=== PATIENT | female | born 1990 | race Caucasian/White ===

== ENCOUNTER 2023-02-14 14:05 | Outpatient (AMB) | payer BC, SELFPAY ==
--- NOTE | 2023-02-14 14:19 | MHC.OFFVIS ---
Intake Vital Signs 02/14/23 14:20 Height 5 ft 5 in BP 166/90 H Blood Pressure Location Rt brachial Position Sitting Respiration 17 Pulse 101 H Pulse Source Pulse Oximeter Pulse Oximetry (%) 99 Oxygen Delivery Method Room Air Intake Visit Reasons: ENP-Severe EVANGELINA-Confirmed Intake Note: Pt presents to office for new pt evaluation for severe EVANGELINA. Buffer Nickel Required: No Allergies clomiphene [From Clomid] Allergy (Mild, Verified 02/14/23 14:23) Migraine HPI HPI Comments History of Present Illness Details 32 y/o female patient with HTN, HLD, palpitations, and migraine presents to manage sleep apnea. Pt reports that she had a home sleep study done a week ago. The home sleep study result was significant for severe degree of sleep apnea. The overall AHI was 34/hr and oxygen gurinder was 89%. Pt reports difficulty falling asleep and staying sleep. It takes half hour to fall asleep and wakes up a lot with dream. She wakes up with tension headache, too. She sleeping on her side due to snoring, and uses nasal strip. She does not take a nap, but can be really tired and exhausted in the afternoon. Pt's sleep schedule is 9:30-10pm to 6am. She does 30 min daily exercise. No caffeine intake but watching TV and playing with phone before bedtime. [facility] Medical History (Updated 02/22/23 @ 10:54 by Zeeshan Woodall CNP) Ectopic Surgical History (Updated 02/14/23 @ 14:25 by Emani Irizarry CMA) History of appendectomy Family History (Updated 02/14/23 @ 14:26 by Emani Irizarry CMA) Father Sleep apnea HTN (hypertension) Mother No problems noted. Social History (Updated 02/14/23 @ 14:27 by Emani Irizarry CMA) Household Members: Spouse and Children Housing: House Alcohol intake: current Comment: seldom Patient Tobacco Use Status: Never used Tobacco Review of Systems Const All systems reviewed & are unremarkable except as noted in HPI and below Physical Exam Vital Signs: Last Vital Signs Pulse 101 H 02/14/23 14:20 Resp 17 02/14/23 14:20 BP 166/90 H 02/14/23 14:20 Pulse Ox 99 02/14/23 14:20 Oxygen Delivery Method Room Air 02/14/23 14:20 Const General: cooperative and tired appearing Orientation/consciousness: patient oriented x3 Neck Neck: Yes full ROM and Yes supple Resp Effort & Inspection: normal respiratory effort and able to speak in complete sentences Neuro General: patient oriented x3, gait normal and moves all extremities Cranial nerves: Yes CN's II-XII intact bilaterally Gait exam (Neuro): Normal gait present Motor exam (neuro): 5/5 motor strength present throughout Psych Appearance: grossly normal Mental Status: mental status grossly normal Speech and movement: Normal speech and movement present Affect: normal affect Attitude: cooperative Assessment & Plan Assessment & Plan (1) EVANGELINA (obstructive sleep apnea): Comment: Severe degree of sleep apnea. The AHI was 34/hr and oxygen gurinder was 89% Code(s): G47.33 - Obstructive sleep apnea (adult) (pediatric) Plan Advised patient to start APAP [id number] to treat sleep apnea. Stressed compliance, use CPAP nightly and more than 4 hrs. Sleep hygiene education provided, limit electronic use before bedtime. Coding Level of Care Code New Pt Level 3 (22806) Diagnoses EVANGELINA (obstructive sleep apnea) G47.33
[2023-02-14 14:20] VITALS: BP 166/90; PULSE 101; RESP 17; O2SAT 99
== END 2023-02-14 14:50 | disposition home or self-care (01) ==
PROVIDERS: PCP Family Medicine; Visit Provider Nurse Practitioner Family
DX: G47.33 Obstructive sleep apnea (adult) (pediatric) (principal)
CPT/HCPCS: 99203

== ENCOUNTER → 2023-02-14 14:05 | Outpatient (BNVA) | payer BC, SELFPAY | PROVIDERS: PCP Family Medicine; Visit Provider Nurse Practitioner Family ==

== ENCOUNTER 2023-05-10 07:53 | Outpatient (AMB) | payer BC, SELFPAY ==
--- NOTE | 2023-05-10 07:54 | A.OFFVIS_ITS ---
Intake Intake Visit Reasons: discuss denial sleep study-LV Intake Note: follow up on sleep. Allergies clomiphene [From Clomid] Allergy (Mild, Verified 05/10/23 07:55) Migraine Medication List - Last Reconciled 05/10/23 by ANURAG Krishnan magnesium 250 mg PO DAILY rosuvastatin 5 mg PO DAILY HPI HPI Comments History of Present Illness Details 33-yr-old female presents for f/u televi suzanne visit via [employer]. Pt denies any significant interval medical changes. Pt has been doing better on CPAP. She is feeling better overall. However she can wake up with either unilateral or bilateral nasal congestion. She used to take allergy medications to help with her dizziness, but stopped a few months ago as she did not think the dizziness was related to allergies. Compliance Report,,04/10/2023 - 05/09/2023 Usage days 29/30 days (97%); >= 4 hours 29 days (97%) < 4 hours Average usage (days used) 5 hours 59 minutes AirSense 10 AutoSet Serial number [id number] Mode APAP 5 - 15 cmH2O EPR Fulltime EPR level 2 Residual AHI: 0.6/hr She will feel like she is moving when she is not, especially in big open spaces. She does have menstrual migraine. Migraines are not as bad as they used to be. Bifrontal, can be unilateral frontal, and eye pain. Throbbing. A/w photophobia, phonophobia, osmophobia, motion sickness, sometimes a split second of room spinning dizziness, mild nausea, feels disoriented/dififuclty getting the words out, activity intolerance. Has had a few auras- will lose vision in one spot x's 1/2-1 hr. Can also have pressure headaches. Has been noticing her computer screen is more bothersome and has trouble focusing. Does wear a mouthguard for TMJ disorder. 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 [facility] Medical History (Updated 05/13/23 @ 17:17 by ANURAG Krishnan) Ectopic Surgical History History of appendectomy Family History Father Sleep apnea HTN (hypertension) Mother No problems noted. Social History Household Members: Spouse and Children Housing: House Alcohol intake: current Comment: seldom Patient Tobacco Use Status: Never used Tobacco Physical Exam Const General: cooperative and no acute distress Orientation/consciousness: patient oriented x3 Resp Effort & Inspection: normal respiratory effort and able to speak in complete sentences Neuro General: patient oriented x3 Cognition (Neuro): normal cognition Psych Appearance: grossly normal Mental Status: mental status grossly normal Speech and movement: Normal speech and movement present Affect: normal affect Attitude: cooperative Assessment & Plan Assessment & Plan (1) EVANGELINA (obstructive sleep apnea): Comment: Severe degree of sleep apnea. The AHI was 34/hr and oxygen gurinder was 89% Code(s): G47.33 - Obstructive sleep apnea (adult) (pediatric) (2) Dizziness: Code(s): R42 - Dizziness and giddiness (3) Migraine: Code(s): G43.909 - Migraine, unspecified, not intractable, without status migrainosus Plan Continue Mode APAP 5 - 15 cmH2O nightly greater than 4 hours is patient is experiencing good clinical effect and has significant reduction in residual AHI. Will adjust EPR from level 2 to level 3, in hopes this includes tolerance Trial saline nasal spray f/b Azelastine nasal spray 1-2 sprays in each nostril q.h.s. Continue vision therapy. Will share nonpharmacological migraine and photosensitivity treatments via portal. Vestibular physical therapy when she has completed vision therapy. Follow-up in 4-6 months or sooner as needed. Orders: Orders PT Evaluation and Treatment 1 Month R42 - Dizziness and giddiness Medications: New azelastine administer into each nostril 2 sprays intranasal BID 30 days 30 mL 3RF Telehealth Telehealth Location of provider rendering services: practice address Location of patient: address on file Patient Identification confirmed using: Name, : Yes Telehealth method: video Patient verbally consented to treatment: Yes Patient verbally consented to billing insurance company: Yes Patient informed of any privacy concerns related to visit: Yes Minutes spent on Phone/Video with Pt.: 23 Coding Level of Care Code Tele Est Pt Level 4 (90025) Diagnoses EVANGELINA (obstructive sleep apnea) G47.33 Dizziness R42 Migraine G43.909
== END 2023-05-10 14:28 | disposition home or self-care (01) ==
LOC: HO.HSMC 07:53
PROVIDERS: PCP Family Medicine; Visit Provider Nurse Practitioner Family
DX: G47.33 Obstructive sleep apnea (adult) (pediatric) (principal); R42 Dizziness and giddiness; G43.909 Migraine, unspecified, not intractable, without status migrainosus
CPT/HCPCS: 99214

== ENCOUNTER → 2023-05-10 07:53 | Outpatient (BNVA) | payer BC, SELFPAY | PROVIDERS: PCP Family Medicine; Visit Provider Nurse Practitioner Family ==

== ENCOUNTER 2023-11-21 11:14 | Outpatient (AMB) | payer BC, SELFPAY ==
--- NOTE | 2023-11-21 11:15 | A.OFFVIS_ITS ---
Intake Visit Reasons: 4 mnts f/u for EVANGELINA Intake Note: Patient presents for 4 month follow up EVANGELINA Allergies clomiphene [From Clomid] Allergy (Mild, Verified 11/21/23 11:15) Migraine HPI Comments Details: 33-yr-old female presents for f/u televideo visit via [employer]. Pt denies any significant interval medical changes. Pt states she has been doing fine with her PAP machine. However, last night, she felt last night was the worst night she has had. She woke up and saw high residual AHI and felt caesar pressure was too high. She woke up w/ abd bloating, pain, sweating- took a few hrs, and fluids/TZums to resolve. Now, feels that she cannot sleep w/o the machine. PAP compliance data does not show significantly elevated AHI- was ~ 2/hr. She has not had a migraine or severe dizziness in at least 6 weeks. She is feeling much better. She has completed vision therapy. She is doing vestibular [place] and bi weekly massage. Started psychotherapy to help manage her stress. She is adhering to a migraine diet. Specifically avoiding foods high in histamine. Not noticing as much congestion. She is taking Propranolol 10mg qhs- never increased to 20mg. She notes that her migraine and dizziness is worse in the fall- but she is hopeful that this fall will be better. She is picking up her Nurtec today. [place] [id number] Email: Compliance Report Usage 10/22/2023 - 11/20/2023 Usage days 30/30 days (100%) >= 4 hours 27 days (90%) < 4 hours 3 days (10%) Usage hours 188 hours 41 minutes Average usage (total days) 6 hours 17 minutes Average usage (days used) 6 hours 17 minutes Median usage (days used) 6 hours 37 minutes Total used hours (value since last reset - 11/20/2023) 1,553 hours AirSense 10 AutoSet Serial number [id number] Mode AutoSet Min Pressure 5 cmH2O Max Pressure 15 cmH2O EPR Fulltime EPR level 3 Response Standard Therapy Pressure - cmH2O Median: 6.3 95th percentile: 8.7 Maximum: 10.6 Leaks - L/min Median: 0.0 95th percentile: 1.6 Maximum: 20.5 Events per hour AI: 1.1 HI: 0.0 AHI: 1.1 PFSH Medical History (Updated 05/13/23 @ 17:17 by ANURAG Krishnan) Ectopic Surgical History History of appendectomy Family History Father Sleep apnea HTN (hypertension) Mother No problems noted. Social History Household Members: Spouse and Children Housing: House Alcohol intake: current Comment: seldom Patient Tobacco Use Status: Never used Tobacco Physical Exam Const General: cooperative and no acute distress Orientation/consciousness: patient oriented x3 Resp Effort & Inspection: normal respiratory effort and able to speak in complete sentences Neuro General: patient oriented x3 Cognition (Neuro): normal cognition Psych Appearance: grossly normal Mental Status: mental status grossly normal Speech and movement: Normal speech and movement present Affect: normal affect Attitude: cooperative Telehealth Telehealth Telehealth Platform: Telephone Location of provider rendering services: practice address Location of patient: address on file Patient Identification confirmed using: Name, : Yes Telehealth method: video Patient verbally consented to treatment: Yes Patient verbally consented to billing insurance company: Yes Patient informed of any privacy concerns related to visit: Yes Minutes spent on Phone/Video with Pt.: 12 Assessment & Plan Assessment & Plan (1) Migraine: Code(s): G43.909 - Migraine, unspecified, not intractable, without status migrainosus Category: Medical (2) Dizziness: Code(s): R42 - Dizziness and giddiness Category: Medical (3) EVANGELINA (obstructive sleep apnea): Comment: Severe degree of sleep apnea. The AHI was 34/hr and oxygen gurinder was 89% Code(s): G47.33 - Obstructive sleep apnea (adult) (pediatric) Category: Medical Plan Continue APAP 5 - 15 cmH2O w/ EPR 3 nightly greater than 4 hours is patient is experiencing good clinical effect and has significant reduction in residual AHI. Azelastine nasal spray 1-2 sprays in each nostril q.h.s. prn Pt to let us know if last night's difficulties w/ PAP tx persist. ? Continue Vestibular physical therapy. Continue propranolol 10mg qhs. Rimegepant ODT (Nurtec ODT) 75mg, 1 tab every other day. Max of 1 tabs (75mg) per 24 hours. May adjunct with OTC Tylenol 650mg q 4 hours, Ibuprofen 600mg q 6 hours, or Naproxen 440mg q 12 hrs prn. Do not take w/ Butalbital (Fioricet or Fiorinal). Potential adverse effects, include but are not limited to fatigue, nausea, dry mouth, constipation. Previous trials- Timolol eye gtts- ineffcetive. ? Follow-up in 6 months or sooner as needed. Coding Level of Care Code Tele Est Pt Level 4 (21068) Diagnoses Migraine G43.909 Dizziness R42 EVANGELINA (obstructive sleep apnea) G47.33
== END 2023-11-21 12:25 | disposition home or self-care (01) ==
LOC: HO.HSMS 11:14
PROVIDERS: PCP Family Medicine; Referring Provider Family Medicine; Visit Provider Nurse Practitioner Family
DX: G43.909 Migraine, unspecified, not intractable, without status migrainosus (principal); R42 Dizziness and giddiness; G47.33 Obstructive sleep apnea (adult) (pediatric)
CPT/HCPCS: 99214

== ENCOUNTER → 2023-11-21 11:14 | Outpatient (BNVA) | payer BC, SELFPAY | PROVIDERS: PCP Family Medicine; Visit Provider Nurse Practitioner Family ==

== ENCOUNTER 2024-06-27 14:20 | Outpatient (AMB) | payer BC, SELFPAY ==
--- NOTE | 2024-06-27 14:09 | A.OFFVIS_ITS ---
Intake Visit Reasons: Follow Up Intake Note: Patient presents follow up migraine/EVANGELINA. Compliance in chart [employer] Account Manager Required: No Accompanied by: Self / Same As Patient Allergies clomiphene [From Clomid] Allergy (Mild, Verified 06/27/24 14:10) Migraine Medication List - Last Reconciled 06/27/24 by ANURAG Krishnan atorvastatin 40 mg PO DAILY azelastine 2 sprays intranasal BID 30 days magnesium 250 mg PO DAILY ondansetron 4 - 8 mg (1 - 2 x 4 mg) PO Q6H PRN 14 days MDD 4 tabs propranolol 10 mg PO BID 30 days rimegepant (Nurtec ODT) 75 mg PO ONCE PRN 30 days MDD 1 tab rosuvastatin 5 mg PO DAILY HPI Comments Details: 33-yr-old female presents for f/u tele visit for migraine and sleep apnea. Pt denies any significant interval medical changes. However, she does note that her father who is in his early 60s, which just recently diagnosed with amyloid positive Alzheimer's dementia She reports she is feeling better overall. She has been trying to lose weight. Tried wegovy and zepbound but did not tolerate. While on Zepbound, she was taken off of her control, and thus had an increase in migraine/headache attacks, daily for 2 weeks. However since, her migraines have returned to baseline. Now is trying to focus on eating a balanced healthy diet and exercising regularly. She is still following the migraine diet, but has been slowly introducing new foods, so far tolerating well. Since last visit, we adjusted patient's APAP pressure settings from 5-15 cm H2O to 5-8 cm H2O- due to persistent abdominal/GI symptoms. Patient reports she is now tolerating her APAP therapy much better. She continues to feel better. She has completed vision therapy last year. She rarely has a dizziness episode- no longer feels that she is always walking on [employer]. She is taking Propranolol 10mg qhs- She is having for migraine days per month, which respond well to Nurtec. He may have more migraine symptoms during her menstrual cycle. [address], [facility] Email: [email or web address] Compliance Report Usage 02/27/2024 through 05/26/2024 Usage days 30/30 days (100%) Usage days >= 4 hours 89% Average usage (days used) 6 hours 8 minutes AirSense 10 AutoSet Serial number [id number] Mode AutoSet Min Pressure 5 cmH2O Max Pressure 8 cmH2O EPR Fulltime EPR level 3 Response Maximum pressure 7.8 cm H2O Median leaks 0 L/min Residual AHI 1 per hour. [facility] Medical History (Updated 06/27/24 @ 15:28 by ANURAG Krishnan) Ectopic Surgical History History of appendectomy Family History Father Sleep apnea HTN (hypertension) Mother No problems noted. Social History Household Members: Spouse and Children Housing: House Alcohol intake: current Comment: seldom Patient Tobacco Use Status: Never used Tobacco Physical Exam Const General: cooperative and no acute distress Orientation/consciousness: patient oriented x3 Resp Effort & Inspection: normal respiratory effort and able to speak in complete sentences Neuro General: patient oriented x3 Cognition (Neuro): normal cognition Psych Mental Status: mental status grossly normal Affect: normal affect Attitude: cooperative Telehealth Telehealth Telehealth Platform: Telephone Location of provider rendering services: practice address Location of patient: address on file Patient Identification confirmed using: Name, : Yes Telehealth method: voice only Patient verbally consented to treatment: Yes Patient verbally consented to billing insurance company: Yes Patient informed of any privacy concerns related to visit: Yes Minutes spent on Phone/Video with Pt.: 30 Results Reviewed Results Reviewed: Assessment & Plan Assessment & Plan (1) Migraine: Code(s): G43.909 - Migraine, unspecified, not intractable, without status migrainosus Category: Medical Qualifiers: Migraine type: migraine (< 15 days per month) without aura Status migrainosus presence: without status migrainosus Intractability: not intractable Qualified Code(s): G43.009 - Migraine without aura, not intractable, without status migrainosus (2) Dizziness: Code(s): R42 - Dizziness and giddiness Category: Medical (3) EVANGELINA (obstructive sleep apnea): Comment: Severe degree of sleep apnea. The AHI was 34/hr and oxygen gurinder was 89% Code(s): G47.33 - Obstructive sleep apnea (adult) (pediatric) Category: Medical (4) Family history of Alzheimer's disease: Comment: Father- positive amyloid PET scan Code(s): Z82.0 - Family history of epilepsy and other diseases of the nervous system Category: Medical Plan For family history of amyloid positive Alzheimer's disease in her father: Patient advised to discuss with father's neurology team, obtaining genetic testing. She may benefit from following up with the [place] for neurological disorders and [place]. For EVANGELINA: Continue APAP 5 - 8 cmH2O w/ EPR 3 nightly greater than 4 hours, as patient is experiencing good clinical effect and has significant reduction in residual AHI. Azelastine nasal spray 1-2 sprays in each nostril q.h.s. prn For migraine and dizziness: Continue to optimize healthy lifestyle factors, such as sleeping well, eating a healthy diet, regular physical activity. For preventive treatment: Continue propranolol 10mg qhs. For acute treatment: Continue vestibular therapy exercises as needed. Continue Rimegepant ODT (Nurtec ODT) 75mg, 1 tab daily as needed at onset of migraine. Max of 1 tabs (75mg) per 24 hours. May adjunct with OTC Tylenol 650mg q 4 hours, Ibuprofen 600mg q 6 hours, or Naproxen 440mg q 12 hrs prn. Do not take w/ Butalbital (Fioricet or Fiorinal). Potential adverse effects, include but are not limited to fatigue, nausea, dry mouth, constipation. Previous trials- Timolol eye gtts- ineffcetive. ? Follow-up in 6 months or sooner as needed. Medications: Changed 2 From propranolol 10 mg PO BID 30 days 60 tabs 3RF To propranolol 10 mg PO BEDTIME 90 days 90 tabs 3RF Coding Level of Care Code Tele Est Pt Level 4 (76521) Diagnoses Migraine without aura and without status migrainosus, not intractable G43.009 Migraine type: migraine (< 15 days per month) without aura Status migrainosus presence: without status migrainosus Intractability: not intractable Dizziness R42 EVANGELINA (obstructive sleep apnea) G47.33 Family history of Alzheimer's disease Z82.0
--- OUTSIDE RECORDS SUMMARY | 2024-06-27 14:40 | XMS_ITS | Clinical Summary ---
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 Name Role Phone Unavailable Primary Care Provider Unavailabl e Social History Tobacco Use Types Packs/Day Years Used Date Smoking Tobacco: Never Assessed Sex and Gender Information Value Date Recorded Sex Assigned at Not on file Gender Identity Not on file Sexual Orientation Not on file Job Start Date Occupation Industry Not on file Not on file Not on file Plan of Treatment Health Maintenance Due Date Last Done Comments Hepatitis C Screening 1990 COVID-19 Vaccine (#1) 1990 Depression Screening 2002 Preventative Health Evaluation 2008 Cervical Cancer Screening (Pap Smear) 2011 Influenza Vaccine (#1) 2023 0, 01/30/2019, 04/07/2017, Additional history exists DTap / Tdap / Td (5 - Td or Tdap) 05/18/2029 05/19/2019, 09/29/2015, 01/31/2008, Additional history exists Hepatitis B Vaccines Completed 04/24/2001, 11/02/2000, 10/01/2000 Pneumococcal Vaccine Aged Out No long er eligible based on patient's age to complete this topic RSV Ped < 20 months Aged Out No longe r eligible based on patient's age to complete this topic
== END 2024-07-02 16:21 | disposition home or self-care (01) ==
LOC: HO.HSMS 14:21
PROVIDERS: PCP Family Medicine; Visit Provider Nurse Practitioner Family
DX: G43.009 Migraine without aura, not intractable, without status migrainosus (principal); R42 Dizziness and giddiness; G47.33 Obstructive sleep apnea (adult) (pediatric); Z82.0 Family history of epilepsy and other diseases of the nervous system
CPT/HCPCS: 98968

== ENCOUNTER → 2024-06-27 14:20 | Outpatient (BNVA) | payer BC, SELFPAY | PROVIDERS: PCP Family Medicine; Visit Provider Nurse Practitioner Family | DX: G43.009 Migraine without aura, not intractable, without status migrainosus (principal); G47.33 Obstructive sleep apnea (adult) (pediatric); R42 Dizziness and giddiness; Z82.0 Family history of epilepsy and other diseases of the nervous system | CPT/HCPCS: 98968 ==

== ENCOUNTER 2024-11-06 12:41 | Outpatient (AMB) | payer BC, SELFPAY ==
--- NOTE | 2024-11-06 12:35 | A.OFFVIS_ITS ---
Intake Visit Reasons: Follow up Intake Note: Patient presents follow up for migraines/dizziness Questioned Documents Examiner Required: No Accompanied by: Self / Same As Patient Allergies clomiphene (From Clomid) Allergy (Mild, Verified 11/06/24 12:39) Migraine Medication List - Last Reconciled 11/06/24 by ANURAG Krishnan atorvastatin 40 mg PO DAILY azelastine 2 sprays intranasal BID 30 days magnesium 250 mg PO DAILY ondansetron 4 - 8 mg (1 - 2 x 4 mg) PO Q6H PRN 14 days MDD 4 tabs propranolol 10 mg PO BID 90 days rimegepant (Nurtec ODT) 75 mg PO ONCE PRN 30 days MDD 1 tab rosuvastatin 5 mg PO DAILY HPI Comments Details: 34-yr-old female presents for f/u tele visit for migraine and sleep apnea. Visit was conducted via telephone today, as tele video technology was not functioning properly. Pt denies any significant interval medical changes. However, she does note that her father who is in his early 60s, which just recently diagnosed with amyloid positive Alzheimer's dementia She reports she is having an almost daily migraine- maybe has had 4-5 headache free days in the past month. She states the headaches seem to come on at 10am, both when working and not when working. She is not sure of any specific triggers, possibly stress, the heat, computer screen use at work. She is compliant w/ propranolol 10mg qhs. She has been taking some supplements, including vitamin-D. The nurtec helps some days but other days does not help. She states she has not had any palpitations in the last several months. The patient reports she is sleeping well with her CPAP machine. [address], [facility] Email: [email or web address] Compliance Report Usage 10/07/2024 - 11/05/2024 Usage days 30/30 days (100%) Usage days >= 4 hours 26 days (87%) Average usage (days used) 6 hours 19 minutes AirSense 10 AutoSet Serial number [id number] Mode AutoSet Min Pressure 5-8 cmH2O EPR Fulltime EPR level 3 Response Maximum pressure 7.8 cm H2O Median leaks 0 L/min Residual AHI 1.2 per hour. PFSH Medical History (Updated 06/27/24 @ 15:28 by ANURAG Krishnan) Ectopic Surgical History History of appendectomy Family History Father Sleep apnea HTN (hypertension) Mother No problems noted. Social History Household Members: Spouse and Children Housing: House Alcohol intake: current Comment: seldom Patient Tobacco Use Status: Never used Tobacco Physical Exam Const General: cooperative and no acute distress Orientation/consciousness: patient oriented x3 Resp Effort & Inspection: normal respiratory effort and able to speak in complete sentences Neuro General: patient oriented x3 Cognition (Neuro): normal cognition Psych Mental Status: mental status grossly normal Affect: normal affect Attitude: cooperative Telehealth Telehealth Telehealth Platform: [facility] Location of provider rendering services: practice address Location of patient: address on file Patient Identification confirmed using: Name, : Yes Telehealth method: voice only Patient verbally consented to treatment: Yes Patient verbally consented to billing insurance company: Yes Patient informed of any privacy concerns related to visit: Yes Minutes spent on Phone/Video with Pt.: 16 Assessment & Plan Assessment & Plan (1) Migraine: Code(s): G43.909 - Migraine, unspecified, not intractable, without status migrainosus Category: Medical Qualifiers: Migraine type: migraine (< 15 days per month) without aura Status migrainosus presence: without status migrainosus Intractability: not intractable Qualified Code(s): G43.009 - Migraine without aura, not intractable, without status migrainosus (2) Dizziness: Code(s): R42 - Dizziness and giddiness Category: Medical (3) EVANGELINA (obstructive sleep apnea): Comment: Severe degree of sleep apnea. The AHI was 34/hr and oxygen gurinder was 89% Code(s): G47.33 - Obstructive sleep apnea (adult) (pediatric) Category: Medical (4) Family history of Alzheimer's disease: Comment: Father- positive amyloid PET scan Code(s): Z82.0 - Family history of epilepsy and other diseases of the nervous system Category: Medical Plan For family history of amyloid positive Alzheimer's disease in her father: * Patient advised to discuss with father's neurology team, obtaining genetic testing. * She may benefit from following up with the [facility] and [place]. For EVANGELINA: * Continue APAP 5 - 8 cmH2O w/ EPR 3 nightly greater than 4 hours, as patient is experiencing good clinical effect and has significant reduction in residual AHI. * Azelastine nasal spray 1-2 sprays in each nostril q.h.s. prn For overall migraine and dizziness management: * Continue to optimize healthy lifestyle factors, such as sleeping well, eating a healthy diet, regular physical activity. For migraine prevention treatment: * Increase propranolol from 10mg daily at bedtime to 10 mg twice a day * Trial Topiramate IR 25 mg daily at bedtime, may increase to 50 mg daily at bedtime tolerated well. * Potential adverse effects of Topiramate, include but are not limited to fatigue, cognitive changes, paresthesias (tingling), vision changes, kidney stones. * Future considerations: CGRP monoclonal antibody therapy, Timolol eye gtts- ineffcetive. For acute treatment: * Continue vestibular therapy exercises as needed. * Continue Rimegepant ODT (Nurtec ODT) 75mg, 1 tab daily as needed at onset of migraine. Max of 1 tabs (75mg) per 24 hours. * May take Nurtec with OTC Tylenol 650mg q 4 hours, Ibuprofen 600mg q 6 hours, or Naproxen 440mg q 12 hrs prn. Do not take w/ Butalbital (Fioricet or Fiorinal). Potential adverse effects, include but are not limited to fatigue, nausea, dry mouth, constipation. * Previous trials- sumatriptan and rizatriptan- not tolerated. ? Follow-up in 6 months or sooner as needed. Medications: New topiramate 25 - 50 mg (1 - 2 x 25 mg) PO BEDTIME 60 tabs 3RF 30 days Coding Level of Care Code Tele Est Pt Level 4 (70947) Diagnoses Migraine without aura and without status migrainosus, not intractable G43.009 Migraine type: migraine (< 15 days per month) without aura Status migrainosus presence: without status migrainosus Intractability: not intractable Dizziness R42 EVANGELINA (obstructive sleep apnea) G47.33 Family history of Alzheimer's disease Z82.0
--- OUTSIDE RECORDS SUMMARY | 2024-11-06 13:19 | XMS_ITS | Clinical Summary ---
Author Organization [facility] Address [address] [place] [id number] Care Team Providers Care Command [facility] Analyst Name Role Phone Unavailable Primary Care Provider [...] Screening (Pap Smear) 2011 Influenza Vaccine (#1) 2024 0, 01/30/2019, 04/07/2017, Additional history exists DTap [...]
== END 2024-11-06 13:56 | disposition home or self-care (01) ==
PROVIDERS: PCP Family Medicine; Visit Provider Nurse Practitioner Family
DX: G43.009 Migraine without aura, not intractable, without status migrainosus (principal); R42 Dizziness and giddiness; G47.33 Obstructive sleep apnea (adult) (pediatric); Z82.0 Family history of epilepsy and other diseases of the nervous system
CPT/HCPCS: 98967